=== PATIENT | male | born 1970 | race African-American/Black ===

== ENCOUNTER 2016-03-16 19:19 | Emergency (ER) | payer MEDICAID ==
[~2016-03-16 19:19] MED LIST: EPINEPHRINE INJ 1 MG/10 ML DISP.SYRIN ONE; SUCCINYLCHOLINE CHLORIDE INJ 200 MG/10 ML VIAL ONE
[2016-03-16] MEDS ORDERED: NOREPINEPHRINE BITARTRATE INJ/PF 4 MG/4 ML SDV IV ONE (19:31)
[2016-03-16] MEDS ORDERED: NORMAL SALINE 1000 ML 1,000 ML IV PRN (19:53)
[2016-03-16] MEDS ORDERED: SUCCINYLCHOLINE CHLORIDE INJ 200 MG/10 ML VIAL IV ONE (19:53)
[2016-03-16] MEDS ORDERED: PROPOFOL 100 ML IV ONE (20:04)
[2016-03-16 21:35] LABS: HEMOGLOBIN 13.1 g/dL (13.5-17.0); HGB HCT DIFFERENCE -1.7; MEAN CORPUSCULAR HEMOGLOBIN 26.3 pg (27.0-33.4); MEAN CORPUSCULAR HGB CONC 31.9 g/dL (32.0-36.0); MEAN CORPUSCULAR VOLUME 83 fl (80-97); RED BLOOD COUNT 4.97 10^6/uL (4.35-5.55); RED CELL DISTRIBUTION WIDTH 16.5 % (11.5-14.0); WHITE BLOOD COUNT 11.5 10^3/uL (4.0-10.5)
[2016-03-16 21:38] LABS: ALANINE AMINOTRANSFERASE 101 U/L (21-72); ALBUMIN 3.1 g/dL (3.5-5.0); ALKALINE PHOSPHATASE 42 U/L (38-126); ANION GAP 13 (5-19); ASPARTATE AMINO TRANSFERASE 154 U/L (17-59); BILIRUBIN,TOTAL 0.6 mg/dL (0.2-1.3); BLOOD UREA NITROGEN 23 mg/dL (7-20); CALCIUM 8.3 mg/dL (8.4-10.2); CARBON DIOXIDE 24 mmol/L (22-30); CHLORIDE 107 mmol/L (98-107); CREATINE KINASE 997 U/L (55-170); CREATININE RESULT 2.54 mg/dL (0.52-1.25); GLUCOSE 206 mg/dL (75-110); POTASSIUM 4.9 mmol/L (3.6-5.0); SODIUM 143.5 mmol/L (137-145); TOTAL PROTEIN 6.1 g/dL (6.3-8.2)
[2016-03-16 21:48] LABS: CREATINE KINASE MB 14.7 ng/mL (<4.55)
[2016-03-16 21:51] LABS: TROPONIN I 0.144 ng/mL
[2016-03-16 22:03] LABS: BAND NEUTROPHILS % (MANUAL) 3 % (3-5); BASOPHILS % (MANUAL) 0 % (0-2); EOSINOPHILS % (MANUAL) 0 % (0-6); LYMPHOCYTES % (MANUAL) 9 % (13-45); NUCLEATED RED BLOOD CELLS 1 /100 WBC (0); TOTAL CELLS COUNTED 100
[2016-03-16 22:08] LABS: HYPOCHROMASIA SLIGHT; POLYCHROMASIA 1+; SMUDGE CELLS PRESENT; TOXIC VACUOLATION PRESENT
[2016-03-16 22:09] LABS: ACANTHOCYTES 1+; ANISOCYTOSIS 1+; OVALOCYTES SLIGHT; PLATELET CLUMPS PRESENT; POIKILOCYTOSIS 1+; SCHISTOCYTES SLIGHT
--- NOTE | 2016-03-16 22:12 | ER Document Report ---
ED General <DIRK CORBETT - Last Filed: 03/17/16 02:01> - General Time seen by provider: 19:19 Mode of Arrival: Medic Information source: Relative, Emergency Med Personnel Cannot obtain history due to: Intubated TRAVEL OUTSIDE OF THE [place] IN LAST 30 DAYS: No - HPI Onset: Just prior to arrival Onset/Duration: Sudden <ANDREIACHRISSTEPHANY - Last Filed: 03/17/16 23:20> - General Stated Complaint: CARDIAC ARREST Notes: This is a 45-year-old man with a history of CHF (with pacemaker defibrillator), chronic kidney disease, COPD, hypertension brought into the emergency room in full cardiac arrest. Events as per the : The patient was doing well today and had no complaints. He went to walk to the pharmacy to bulk picker his medicines this evening. The states she saw him immediately before he left and he had no chest pain or other complaints. The pharmacy is less then 2 blocks from his house. Apparently a bystander was driving by when the patient collapsed. The patient was alert at that time and complained of chest pain to the bystander. The passenger was able to give the bystander's address and the bystander drove to the house to alert the patient's . The ran out of the house immediately and by the time she got to the pharmacy (less than 2 blocks away), EMS was already at the scene doing CPR on the patient. Events as per EMS: The arrived at the scene and found the patient unresponsive with agonal breathing and in asystole. CPR was begun in the field. The patient was intubated with a Ike airway in the field. He was given epinephrine 4 in the field. CPR was continued until his arrival in the emergency room. In the emergency room: CPR is in progress. Patient continues to be in asystole (no cardiac activity on bedside ultrasound) and unresponsive. There is a large amount of vomitus around the Ike airway tube. Estimated period between cardiac arrest and onset of CPR: short (few minutes) ( STEPHANY HECK) - Related Data Allergies/Adverse Reactions: No Known Allergies Allergy (Verified 09/22/15 13:36) Past Medical History - General Information source: Relative, Emergency Med Personnel Cannot obtain history due to: Intubated - Social History Smoking Status: Never Smoker Cigarette use (# per day): No Chew tobacco use (# tins/day): No Smoking Education Provided: No Family History: Reviewed & Not Pertinent - Past Medical History Cardiac Medical History: Reports: Hx Congestive Heart Failure, Hx Hypercholesterolemia, Hx Hypertension Pulmonary Medical History: Reports: Hx COPD, Hx Pneumonia Neurological Medical History: Reports: Hx Cerebrovascular Accident Endocrine Medical History: Reports: Hx Diabetes Mellitus Type 2 Renal/ Medical History: Reports: Hx Renal Insufficiency GI Medical History: Reports: Hx Hepatitis Infectious Medical History: Reports: Hx Hepatitis Past Surgical History: Reports: Hx Orthopedic Surgery - Immunizations Hx Diphtheria, Pertussis, Tetanus Vaccination: No - Unk Hx Pneumococcal Vaccination: 03/10/14 <STEPHANY HECK - Last Filed: 03/17/16 23:20> Review of Systems - Review of Systems -: Yes ROS unobtainable due to patient's medical condition <STEPHANY HECK - Last Filed: 03/17/16 23:20> Physical Exam <DIRK CORBETT - Last Filed: 03/17/16 02:01> <STEPHANY HECK - Last Filed: 03/17/16 23:20> - Vital signs Vitals: Pulse Ox 98 03/16/16 19:22 (DIRK CORBETT) (STEPHANY HECK) Notes: Physical exam: GENERAL: 45-year-old male, unresponsive, CPR in progress. HEAD: Atraumatic, normocephalic. EYES: 4 mm minimal reactivity ENT: Moist mucous membranes. Caring airway in place, large amount of vomitus around the tube. NECK: Large neck, no obvious JVD. LUNGS: Bilateral breath sounds with ventilations in progress. HEART: Asystolic, CPR in progress ABDOMEN: Nondistended EXTREMITIES: No obvious edema NEUROLOGICAL: Unresponsive SKIN: Warm, Dry, normal turgor, no rashes or lesions noted. (STEPHANY HECK) Course - Laboratory Result Diagrams: 03/16/16 21:25 03/16/16 21:05 <DIRK CORBETT - Last Filed: 03/17/16 02:01> - Laboratory Result Diagrams: 03/16/16 21:25 03/16/16 21:05 - Diagnostic Test Radiology reviewed: Image reviewed, Reports reviewed - ET tube position good. Chest x-ray shows congestive heart failure. - EKG Interpretation by Nm Rate: Normal Rhythm: NSR - EKG shows normal sinus rhythm with a ventricular rate of 81, PVCs , T-wave inversions anteriorly <STEPHANY HECK - Last Filed: 03/17/16 23:20> - Re-evaluation Re-evalutation: 03/17/16 02:01 Took signout on patient at midnight. Patient has been stable on ventilator. Vitals are stable. Air transport is here for the patient. Stable for transfer. (DIRK CORBETT) 03/16/16 22:06 CPR performed from 19:19 to 19:31. Initial bedside echo showed asystole EPI X 6 in total ROSC obtained at 19:31. Ike Airway tube switched to 8.0 ETT (Succinyl Choline 120 mg given) Left tibial IO left in place. Right groin femoral line placed: labs sent. (Left femoral v line attempted without success (aborted after arterial stick). Vent settings: Vt 550, SIMV 12, PEEP 5, FIO2 80% Patient on Propofol drip IV X 1 Liter NS given post-ROSC Cooling begun: goal 36 degrees c 03/16/16 22:12 Note: NE drip begun for hypotension. Discussed case with family 03/16/16 22:48 Note: Family contact: Patient's is Sima Munoz ([phone]) 03/17/16 00:09 Awaiting transfer: Air transfer not available due to weather. Awaiting MICU truck. (STEPHANY HECK) - Vital Signs Vital signs: Temp Pulse Resp BP Pulse Ox 97.8 F 17 136/89 H 100 03/17/16 02:02 03/17/16 02:02 03/17/16 02:02 03/17/16 02:02 (DIRK CORBETT) (STEPHANY HECK) - Laboratory Laboratory results interpreted by me: 03/16/16 03/16/16 03/16/16 21:05 21:05 21:25 WBC 11.5 H Hgb 13.1 L MCH 26.3 L MCHC 31.9 L RDW 16.5 H Seg Neuts % (Manual) 82 H Lymphocytes % (Manual) 9 L Monocytes % (Manual) 2 L Abs Neuts (Manual) 9.8 H BUN 23 H Creatinine 2.54 H Est GFR ( Amer) 33 L Est GFR (Non-Af Amer) 27 L Glucose 206 H Calcium 8.3 L AST 154 H ALT 101 H Creatine Kinase 997 H CK-MB (CK-2) 14.70 H Total Protein 6.1 L Albumin 3.1 L (DIRK CORBETT) (STEPHANY HECK) Procedures <DIRK CORBETT - Last Filed: 03/17/16 02:01> - Central Line Right Femoral Time completed: 21:30 Consent obtained: Yes - verbal consent obtained from the family Central line pre-insertion: Sterile PPE donned, Chloraprep applied, Sterile drapes applied Central line lumen type: Triple Anesthetic type: 1% Lidocaine mL's of anesthesia: 4 Ultrasound guided: Yes Line secured with sutures: Yes Central line post-insertion: Blood return from lumens - 2 lm patent, Complications: Yes - Intubation Orotracheal Airway evaluation: Obese Mallampati Classification: Class 4 Medications: Succinylcholine Intubation method: Orotracheal Blade size: 4 Equipment used: Glidescope ETT size: 8.0 ETT secured at: Lips ETT secured at (cm): 25 Breath Sounds after Intubation: Equal End tidal CO2 confirmed: Yes Ventilator settings: SIMV - Additional Procedures CPR Time performed: 19:19 <STEPHANY HECK - Last Filed: 03/17/16 23:20> - Central Line Right Femoral Notes: 03/16/16 22:25 Note: First attempted a line on the left side and there was an arterial stick. Compression held for several minutes. Right side then reprepped for line placement. MSBT followed. 03/17/16 23:20 (STEPHANY HECK) - Additional Procedures CPR Notes: 03/17/16 00:04 CPR: approx 12 minutes after EMS arrival Initial Bedside ECHO: asystole Follow-up Bedside ECHO: + cardiac activity. 03/17/16 00:05 (STEPHANY HECK) Critical Care Note - Critical Care Note Total time excluding time spent on procedures (mins): 180 <STEPHANY HECK - Last Filed: 03/17/16 23:20> Discharge <DIRK CORBETT - Last Filed: 03/17/16 02:01> <STEPHANY HECK - Last Filed: 03/17/16 23:20> - Discharge Clinical Impression: cardiac arrest Condition: Critical Disposition: [facility]
[2016-03-17] MEDS ORDERED: PROPOFOL 100 ML IV ONE (01:02)
[2016-03-17 02:31] VITALS: BP 136/89
== END 2016-03-17 02:36 | disposition short-term general hospital (02) ==
LOC: ER 19:19
PROC: 06HM33Z Insertion of Infusion Device into Right Femoral Vein, Percutaneous Approach (ICD-10-PCS; principal; 2016-03-16)
PROC: 0BH17EZ Insertion of Endotracheal Airway into Trachea, Via Natural or Artificial Opening (ICD-10-PCS; 2016-03-16)
DX: I46.9 Cardiac arrest, cause unspecified (principal); I50.9 Heart failure, unspecified; I12.9 Hypertensive chronic kidney disease with stage 1 through stage 4 chronic kidney disease, or unspecified chronic kidney disease; N18.9 Chronic kidney disease, unspecified; J44.9 Chronic obstructive pulmonary disease, unspecified; Z95.810 Presence of automatic (implantable) cardiac defibrillator; Z86.73 Personal history of transient ischemic attack (TIA), and cerebral infarction without residual deficits
CPT/HCPCS: 36556; 99291; 99292; 36415; 82553; 82550; 85025; 80053; 84484; 71010; 31500; C1751; J0171; J0330